=== PATIENT | female | born 1950 | race American Indian/Alaskan Native ===

== ENCOUNTER 2020-09-09 07:25 | Emergency (ER) | payer MEDICARE ==
[2020-09-09 08:32] LABS: Basophils % (Auto) 0.5 % (0.0-1.8); Eosinophils % (Auto) 0.4 % (0.0-4.3); Hematocrit 42.3 % (30.3-42.9); Hemoglobin 13.8 gm/dl (10.1-14.3); Lymphocytes # (Auto) 1.9 K/mm3 (1.2-5.4); Lymphocytes % (Auto) 32.5 % (13.4-35.0); Mean Corpuscular HGB Conc 33 % (30-34); Mean Corpuscular Volume 85 fl (79-97); Monocytes # (Auto) 0.4 K/mm3 (0.0-0.8); Monocytes % (Auto) 6.5 % (0.0-7.3); Platelet Count 247 K/mm3 (140-440); Red Cell Distribution Width 13.6 % (13.2-15.2)
[2020-09-09 08:39] LABS: Alanine Aminotransferase 22 units/L (7-56); Albumin 4.7 g/dL (3.9-5); BUN/Creatinine Ratio 12; Blood Urea Nitrogen 11 mg/dL (7-17); Calcium 9.9 mg/dL (8.4-10.2); Hemolysis Index 19
[2020-09-09] MEDS ORDERED: ONDANSETRON 4 MG/2 ML INJ IV ONE ×2 (10:47→16:09)
[2020-09-09] MEDS ORDERED: SODIUM CHLORIDE 0.9% 1000 ML 1,000 ML IV ONE (10:47)
--- NOTE | 2020-09-09 10:47 | Emergency Department Report ---
ED Abdominal Pain HPI - General Chief Complaint: Abdominal Pain Stated Complaint: EMESIS/DIARRHEA/CRAMPING Time Seen by Provider: 09/09/20 10:09 Source: patient Mode of arrival: Ambulatory Limitations: No Limitations - History of Present Illness Initial Comments: 69-year-old female with a past medical history of hypertension presents to the ER today with complaints of nausea, vomiting and upper abdominal pain. Patient states that her symptoms started around 430 this morning. She reports that she vomited about 10 times this morning. She states that the emesis is mainly bilious. She denies any hematemesis or coffee-ground emesis. She states that her abdominal pain has been constant and was initially radiating to her right flank. At onset the pain was 10 out of 10 but since she has been to the ER is now 5 out of 10. She states that she has been having multiple bowel movements but the stool was not watery. She denies any melena, hematochezia dyschezia or mucus in the stool. She denies any fever or chills. She denies any ill contacts. She denies any bad food intake or recent travel the country. She has not been on any antibiotics in the past 3 to 4 weeks. She denies alcohol abuse or NSAID abuse. She denies any UTI symptoms. She denies any associated chest pain or shortness of breath. She status post hysterectomy but no other abdominal surgeries. MD Complaint: abdominal pain -: days(s) (1) - Related Data Previous Rx's Medication Instructions Recorded Last Taken Type Famotidine [Pepcid] 20 mg PO BID #30 tablet 09/09/20 Unknown Rx HYDROcodone/APAP 7.5-325 [Sullivan 1 each PO Q6HR PRN #12 tablet 09/09/20 Unknown Rx 7.5/325] Ondansetron [Zofran Odt] 4 mg PO Q8HR PRN #15 tab.rapdis 09/09/20 Unknown Rx Allergies Allergy/AdvReac Type Severity Reaction Status Date / Time No Known Allergies Allergy Unverified 09/09/20 07:54 ED Review of Systems ROS: Stated complaint: EMESIS/DIARRHEA/CRAMPING Other details as noted in HPI Comment: All other systems reviewed and negative Constitutional: denies: chills, fever Eyes: denies: eye pain, eye discharge, vision change ENT: denies: ear pain, throat pain, dental pain, hearing loss, epistaxis, c ongestion Respiratory: denies: cough, shortness of breath, SOB with exertion, SOB at rest, wheezing Cardiovascular: denies: chest pain, palpitations, dyspnea on exertion, edema, syncope, paroxysmal nocturnal dyspnea Gastrointestinal: abdominal pain, nausea, vomiting. denies: constipation, hematemesis, melena, hematochezia Genitourinary: denies: urgency, dysuria, frequency, hematuria, discharge, a bnormal menses, dyspareunia Musculoskeletal: denies: back pain, joint swelling, arthralgia, myalgia Skin: denies: rash, lesions, change in color, change in hair/nails, pruritus Neurological: denies: headache, weakness, numbness, paresthesias, confusion, abnormal gait, vertigo Psychiatric: denies: anxiety, depression, auditory hallucinations, visual hallucinations, homicidal thoughts, suicidal thoughts Hematological/Lymphatic: denies: easy bleeding, easy bruising, swollen glands ED Past Medical Hx - Past Medical History Previous Medical History?: Yes Hx Hypertension: Yes - Surgical History Past Surgical History?: Yes Additional Surgical History: hysterectomy, right femur replaced - Social History Smoking Status: Never Smoker Substance Use Type: None - Medications Home Medications: Home Medications Medication Instructions Recorded Confirmed Last Taken Type Famotidine [Pepcid] 20 mg PO BID #30 tablet 09/09/20 Unknown Rx HYDROcodone/APAP 7.5-325 [Sullivan 1 each PO Q6HR PRN #12 tablet 09/09/20 Unknown Rx 7.5/325] Ondansetron [Zofran Odt] 4 mg PO Q8HR PRN #15 tab.rapdis 09/09/20 Unknown Rx ED Physical Exam - General Limitations: No Limitations General appearance: alert, in no apparent distress - Head Head exam: Present: atraumatic, normocephalic, normal inspection - Eye Eye exam: Present: normal appearance, PERRL, EOMI Pupils: Present: normal accommodation - ENT ENT exam: Present: mucous membranes dry (mild ) - Neck Neck exam: Present: normal inspection, full ROM - Respiratory Respiratory exam: Present: normal lung sounds bilaterally. Absent: respiratory distress, wheezes, rales, rhonchi - Cardiovascular Cardiovascular Exam: Present: regular rate, normal rhythm, normal heart sounds - GI/Abdominal GI/Abdominal exam: Present: soft, tenderness (epigastric and LUQ with mild guard ing ). Absent: distended, guarding, rebound, rigid - Back Exam Back exam: Present: normal inspection, full ROM. Absent: CVA tenderness (R), CVA tenderness (L) - Neurological Exam Neurological exam: Present: alert, oriented X3, CN II-XII intact, normal gait - Psychiatric Psychiatric exam: Present: normal affect, normal mood - Skin Skin exam: Present: intact ED Course Vital Signs 09/09/20 09/09/20 07:52 11:22 Temperature 98.3 F Pulse Rate 76 Respiratory 20 16 Rate Blood Pressure 158/98 O2 Sat by Pulse 100 Oximetry ED Medical Decision Making - Lab Data Result diagrams: 09/09/20 08:04 09/09/20 08:04 - EKG Data EKG shows normal: sinus rhythm Rate: normal (75) No standard instances Rhythm: APC's - Radiology Data Radiology results: report reviewed Patient: FAZAL DIAZ MR#: [id number] 953 : 1950 Acct:[id number] Age/Sex: 69 / F ADM Date: 09/09/20 Loc: ED Attending Dr: Ordering Physician: SERGIO VELARDE Date of Service: 09/09/20 Procedure(s): US abdomen limited Accession Number(s): [id number] cc: SERGIO RIGGS RUQ ABDOMINAL ULTRASOUND INDICATION: Epigastric abdominal pain nausea and vomiting. COMPARISON: No relevant prior imaging study available. FINDINGS: Pancreas: Visualized portions show no significant abnormality. Abdominal Aorta: No significant abnormality. IVC: No significant abnormality. Liver: No significant abnormality. Normal hepatopedal blood flow in the main portal vein. Gallbladder: There is a stone in the gallbladder with mild gallbladder wall thickening.. Bile ducts: No significant abnormality. Common bile duct measures 5 mm. Right kidney: No significant abnormality visualized.. Free fluid: None. Additional Findings: None. IMPRESSION: 1. Stone in the gallbladder with mild gallbladder wall thickening. Correlation for acute cholecystitis is recommended.. Signer Name: Josh Valdes MD Signed: 09/09/2020 4:35 PM Workstation Name: [id number] Transcribed By: NYLA Dictated By: Josh Valdes MD Electronically Authenticated By: Josh Valdes MD Signed Date/Time: 09/09/20 1635 DD/ 1634 TD/TT: Patient: FAZAL DIAZ MR#: [id number] 953 : 1950 Acct:[id number] Age/Sex: 69 / F ADM Date: 09/09/20 Loc: ED Attending Dr: Ordering Physician: SERGIO VELARDE Date of Service: 09/09/20 Procedure(s): CT abdomen pelvis w con Accession Number(s): [id number] cc: SERGIO VELARDE CT abdomen pelvis w con INDICATION: Epigastric abdominal pain/nausea and vomiting X1DAY [id number] 100ML. COMPARISON: None TECHNIQUE: Abdominal and pelvic CT exam performed. All CT scans at this location are performed using CT dose reduction for ALARA by means of automated exposure control. FINDINGS: CT ABDOMEN and PELVIS: Lung Bases: No significant abnormality. Liver: No significant abnormality. Biliary: Mild gallbladder wall thickening. Spleen: No significant abnormality. Pancreas: No significant abnormality. Adrenals: No significant abnormality. Kidneys: No significant abnormality. Lymphatics: No lymphadenopathy. Vasculature: No significant abnormality. Bowel: Mild submucosal edema of the stomach. Pelvis: Uterus is surgically absent. Osseous Structures: No aggressive osseous lesion. Additional Findings: None IMPRESSION: 1. Mild gastric wall thickening which could be related to gastritis. Mild gallbladder wall thickening. No stones are seen. Findings could be reactive due to gastritis or related to cholecystitis. Recommend ultrasound of the right upper quadrant for further evaluation. Signer Name: Lowell Galvez MD Signed: 09/09/2020 1:12 PM Workstation Name: [id number] Transcribed By: Dictated By: Lowell Galvez MD Electronically Authenticated By: Lowell Galvez MD Signed Date/Time: 09/09/20 1312 DD/ 1229 TD/TT: - Medical Decision Making Labs reviewed -- CBC show nothing acute. CMP shows elevated blood sugar 166 but otherwise unremarkable including negative troponin. Lipase is normal. EKG shows sinus rhythm with a rate of 75 and atrial premature complex but otherwise no STEMI, acute ischemic changes or significant dysrhythmias. CT abdomen pelvis showed Mild gastric wall thickening which could be related to gastritis. Mild gallbladder wall thickening. No stones are seen. Findings could be reactive due to gastritis or related to cholecystitis. Recommend ultrasound of the right upper quadrant for further evaluation. Ultrasound of the gallbladder showed 1. Stone in the gallbladder with mild gallbladder wall thickening. Correlation for acute cholecystitis is recommended. 165: Patient currently resting comfortably. Patient states that she still n auseous but otherwise denies any pain. She has not had any vomiting during stay. Repeat abdominal exam shows a soft nontender abdomen. She is not toxic or ill-appearing. Discussed lab results and CT results and ultrasound results with patient. Informed her that I am going to get a consult with the general surgeon to see what he recommends. 1655: Discussed case patient's current condition with Dr Del Rio (surgeon donations attendant). He states that since patient has a normal white count, with normal LFTs and she is currently pain-free and is stable, there is no indication for emergent surgery or admission at this time. He recommend that patient follows up with the office and given patient something for pain and nausea. I was able to make an appointment for the patient to follow-up with his office on September 23 at 3. That was the earliest appointment that they had available. Discussed recommendations per surgeon with patient. Also informed her that I made her an appointment for September 14 at 3 PM with the surgeon. She was given strict diet instructions and also gave her warning signs to return to the ER if she develops any fever, and worsening pain to return immediately to the ER. Patient expressed understanding of instructions and agree with plan. Patient was stable at time of discharge. Critical care attestation.: If time is entered above; I have spent that time in minutes in the direct care of this critically ill patient, excluding procedure time. ED Disposition Clinical Impression: Cholelithiasis, Gastritis Disposition: DC-01 TO HOME OR SELFCARE Is pt being admited?: No Does the pt Need Aspirin: No Condition: Stable Instructions: Gastritis, Adult, [id number], Cholelithiasis, [id number], Gallbladder Eating Plan, Abdominal Pain (ED) Additional Instructions: Recommend I take the Lortab and Zofran and the Pepcid as prescribed. It is important that you stay away from fried, fatty greasy foods as this can trigger the gallbladder and worsen your pain. Drink lots of fluids. Follow-up with the general surgeon ( Dr Del Rio) as scheduled on September 23 at 3 PM. Return to the ER if at any point your pain becomes worse, with uncontrollable nausea vomiting and fever. Prescriptions: HYDROcodone/APAP 7.5-325 [Sullivan 7.5/325] 1 each PO Q6HR PRN #12 tablet PRN Reason: Pain Famotidine [Pepcid] 20 mg PO BID #30 tablet Ondansetron [Zofran Odt] 4 mg PO Q8HR PRN #15 tab.rapdis PRN Reason: Nausea And Vomiting Referrals: DIONICIO FOSTER PA [Primary Care Provider] - 3-5 Days TRELL DEL RIO MD [Staff Physician] - 09/23/20 3:00 pm Time of Disposition: 17:05
[2020-09-09] MEDS ORDERED: MORPHINE 2 MG/1 ML INJ IV ONE (10:49)
[2020-09-09 11:53] LABS: Bilirubin,Urine NEG (Negative); Blood,Urine NEG (Negative); Color,Urine Yellow (Yellow); RBC,Urine < 1.0 /HPF (0.0-6.0); Urobilinogen,Urine < 2.0 mg/dL (<2.0); WBC,Urine < 1.0 /HPF (0.0-6.0)
--- NOTE | 2020-09-09 13:17 | Cat Scan Report ---
CT abdomen pelvis w con INDICATION: Epigastric abdominal pain/nausea and vomiting X1DAY [id number] 100ML. COMPARISON: None TECHNIQUE: Abdominal and pelvic CT exam performed. All CT scans at this location are performed using CT dose reduction for ALARA by means of automated exposure control. FINDINGS: CT ABDOMEN and PELVIS: Lung Bases: No significant abnormality. Liver: No significant abnormality. Biliary: Mild gallbladder wall thickening. Spleen: No significant abnormality. Pancreas: No significant abnormality. Adrenals: No significant abnormality. Kidneys: No significant abnormality. Lymphatics: No lymphadenopathy. Vasculature: No significant abnormality. Bowel: Mild submucosal edema of the stomach. Pelvis: Uterus is surgically absent. Osseous Structures: No aggressive osseous lesion. Additional Findings: None IMPRESSION: 1. Mild gastric wall thickening which could be related to gastritis. Mild gallbladder wall thickening . No stones are seen. Findings could be reactive due to gastritis or related to cholecystitis. Recomm end ultrasound of the right upper quadrant for further evaluation. Signer Name: Lowell Galvez MD Signed: 09/09/2020 1:12 PM Workstation Name: [id number]
--- NOTE | 2020-09-09 16:40 | Ultrasound Report ---
LIMITED RUQ ABDOMINAL ULTRASOUND INDICATION: Epigastric abdominal pain nausea and vomiting. COMPARISON: No relevant prior imaging study available. FINDINGS: Pancreas: Visualized portions show no significant abnormality. Abdominal Aorta: No significant abnormality. IVC: No significant abnormality. Liver: No significant abnormality. Normal hepatopedal blood flow in the main portal vein. Gallbladder: There is a stone in the gallbladder with mild gallbladder wall thickening.. Bile ducts: No significant abnormality. Common bile duct measures 5 mm. Right kidney: No significant abnormality visualized.. Free fluid: None. Additional Findings: None. IMPRESSION: 1. Stone in the gallbladder with mild gallbladder wall thickening. Correlation for acute cholecystiti s is recommended.. Signer Name: Josh Valdes MD Signed: 09/09/2020 4:35 PM Workstation Name: [id number]
[2020-09-09 18:11] VITALS: BP 146/88
--- NOTE | 2020-09-10 10:14 | Electrocardiograph Report ---
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
== END 2020-09-09 18:09 | disposition home or self-care (01) ==
LOC: ED 07:25
DX: K80.20 Calculus of gallbladder without cholecystitis without obstruction (principal); K29.70 Gastritis, unspecified, without bleeding; I10 Essential (primary) hypertension; Z90.710 Acquired absence of both cervix and uterus; Z98.890 Other specified postprocedural states; Z79.899 Other long term (current) drug therapy
CPT/HCPCS: 36415; 74177; 76705; 80053; 81001; 83690; 84484; 85025; 93005; 96361; 96374; 96375; 96376; 99284; J2270; J2405; J7030; Q9967